=== PATIENT | female | born 1980 | race Caucasian/White ===

== ENCOUNTER 2016-07-28 08:00 | Inpatient (IN) | payer MEDICAID ==
[~2016-07-28] VITALS: Ht 152.4 cm; Wt 64.5 kg
[~2016-07-28 08:00] MED LIST: ACET-2047 PO; NITR-58 PO
[2016-07-28 09:11] VITALS: Ht 152.4 cm; Wt 64.5 kg
[2016-07-28] MEDS: LACTATED RINGER'S 1,000 ML IV SCH ×2 (09:29→17:06)
[2016-07-28] MEDS ORDERED: OXYTOCIN 30 UNITS/LR 500 ML IV SCH ×2 (09:30)
[2016-07-28] MEDS ORDERED: CARBOPROST 250 MCG INJ IM PRN (09:30)
[2016-07-28] MEDS ORDERED: MISOPROSTOL 200 MCG TAB PR PRN (09:30)
[2016-07-28] MEDS ORDERED: OXYTOCIN 30 UNITS/LR 500 ML IV PRN (09:30)
[2016-07-28] MEDS ORDERED: IBUPROFEN 600 MG TAB PO PRN (09:30)
[2016-07-28] MEDS ORDERED: METHYLERGONOVINE 0.2 MG INJ IM PRN (09:30)
[2016-07-28] MEDS ORDERED: LIDOCAINE 1% (MPF) 30 ML INJ INJ PRN (09:30)
[2016-07-28 09:40] VITALS: BP 137/81; PULSE 59; RESP 17
[2016-07-28 09:49] LABS: EOSINOPHILS # 0.1 10^3/ul (0.0-0.5); HEMATOCRIT 41.6 % (37.0-47.0); HEMOGLOBIN 13.9 g/dl (12.0-16.0); LYMPHOCYTES # 1.6 10^3/ul (0.8-2.9); LYMPHOCYTES % 13.2 % (15.0-51.0); MEAN CORPUSCULAR HEMOGLOBIN 28.9 pg (29.0-33.0); MEAN CORPUSCULAR HGB CONC 33.6 g/dl (32.0-37.0); MEAN CORPUSCULAR VOLUME 86.1 fl (82.0-101.0); MEAN PLATELET VOLUME 9.4 fl (7.4-10.4); MONOCYTE # 0.6 10^3/ul (0.3-0.9); MONOCYTES % 4.8 % (0.0-11.0); NEUTROPHIL # 9.5 10^3/ul (1.6-7.5); PLATELET COUNT 221 10^3/UL (140-440); RED BLOOD COUNT 4.83 10^6/ul (4.20-5.40); RED CELL DISTRIBUTION WIDTH 14.8 % (11.5-14.5); UNCORRECTED WBC 11.8 10^3/ul (4.8-10.8); WHITE BLOOD COUNT 11.8 10^3/ul (4.8-10.8)
[2016-07-28 09:52] LABS: CONDITION 1; LH ANALYZER COMMENTS 1
--- NOTE | 2016-07-28 09:56 | RADRPT ---
PROCEDURE: US OB. CLINICAL INDICATION: Placenta previa , pain TECHNIQUE: Transabdominal views of the pelvis are available for review. COMPARISON: 07/10/2016 FINDINGS: There is a single intrauterine gestation in a vertex position. The heart rate is present at 171 bpm. The placenta is posterior. There is no evidence of placental abruption or previa. RPTAT: AA IMPRESSION: Posterior placenta with no evidence of previa. .Lee Florence MD, MD Date Time Electronically viewed and signed by .Lee Florence MD, MD on 07/28/2016 09:56 .S/
[2016-07-28 09:58] LABS: ALBUMIN 3.5 g/dl (3.3-4.9); POTASSIUM 3.9 mmol/L (3.5-5.1)
[2016-07-28 10:00] LABS: BILIRUBIN,INDIRECT 0.2 mg/dl (0-1.1); BILIRUBIN,TOTAL 0.2 mg/dl (0.2-1.3); CREATININE 0.51 mg/dl (0.44-1.00)
[2016-07-28] MEDS ORDERED: AMPICILLIN 2 GM/NS (PMX) 100 ML IV ONE (10:00)
[2016-07-28 10:01] LABS: ALBUMIN/GLOBULIN RATIO 1.02; CALCIUM 9.1 mg/dl (8.4-10.2); INR 0.92; PROTIME 12.4 Sec (12.2-14.2); TOTAL PROTEIN 6.9 g/dl (6.1-8.1)
[2016-07-28] MEDS ORDERED: MISOPROSTOL 25 MCG CAPSULE ONE ×2 (10:33→10:37)
[2016-07-28] MEDS: MISOPROSTOL 25 MCG CAPSULE PO SCH ×4 (10:39→23:14)
[2016-07-28] MEDS ORDERED: LACTATED RINGER'S 1,000 ML IV PRN (13:00)
[2016-07-28] MEDS ORDERED: MISOPROSTOL 25 MCG CAPSULE PO SCH (13:00)
[2016-07-28] MEDS: AMPICILLIN 1 GM/NS (PMX) 50 ML IV SCH ×3 (15:20→22:26)
[2016-07-28 16:01] LABS: ADD UMIC NO; URINE BILIRUBIN (Dip) NEGATIVE (NEGATIVE); URINE BLOOD (Dip) NEGATIVE (NEGATIVE); URINE COLOR LT. YELLOW (YELLOW); URINE GLUCOSE (Dip) NEGATIVE (NEGATIVE); URINE KETONES (Dip) 15 (NEGATIVE); URINE LEUKOCYTE ESTERASE (Dip) NEGATIVE (NEGATIVE); URINE NITRITE (Dip) NEGATIVE (NEGATIVE); URINE TOTAL PROTEIN (Dip) NEGATIVE (NEGATIVE); URINE UROBILINOGEN (Dip) 0.2 E.U./dL (0.1-1.0)
[2016-07-28] MEDS ORDERED: DEXTROSE 5%-LR 1,000 ML IV PRN (21:00)
[2016-07-29] MEDS: AMPICILLIN 1 GM/NS (PMX) 50 ML IV SCH ×4 (02:27→14:39)
[2016-07-29] MEDS: MISOPROSTOL 25 MCG CAPSULE PO SCH ×2 (03:28→07:00)
[2016-07-29] MEDS ORDERED: LEVOTHYROXINE 25 MCG TAB PO SCH (06:00)
[2016-07-29] MEDS: LACTATED RINGER'S 1,000 ML IV SCH ×2 (06:12→22:30)
[2016-07-29] MEDS ORDERED: OXYTOCIN 30 UNITS/LR 500 ML BAG IV ONE (07:00)
[2016-07-29] MEDS ORDERED: OXYTOCIN 30 UNITS/LR 500 ML IV SCH (10:30)
[2016-07-29] MEDS ORDERED: FENTAnyl 2MCG/ML-ROPIV 0.2% 100 ML ONE (11:33)
[2016-07-29] MEDS ORDERED: DIPHENHYDRAMINE 50 MG INJ IV PRN ×2 (12:00→20:30)
[2016-07-29] MEDS ORDERED: FENTAnyl 2MCG/ML-ROPIV 0.2% 100 ML BAG EPI SCH (12:00)
[2016-07-29] MEDS ORDERED: NALOXONE (0.4 MG/ML) INJ IV PRN ×2 (12:00→20:30)
[2016-07-29] MEDS ORDERED: ONDANSETRON 4 MG INJ IV PRN ×2 (12:00→20:30)
[2016-07-29] MEDS ORDERED: LACTATED RINGER'S 1,000 ML IV SCH (18:06)
[2016-07-29] MEDS ORDERED: CEFAZOLIN 2 GM/50 ML (PMX) 50 ML IVPB ONE (18:06)
[2016-07-29] MEDS ORDERED: MISOPROSTOL 200 MCG TAB PR PRN ×2 (18:30→20:30)
[2016-07-29] MEDS ORDERED: OXYTOCIN 30 UNITS/LR 500 ML IV PRN ×2 (18:30→20:30)
[2016-07-29] MEDS ORDERED: CARBOPROST 250 MCG INJ IM PRN ×2 (18:30→20:30)
[2016-07-29] MEDS ORDERED: CEFAZOLIN 2 GM/50 ML (PMX) 50 ML IV SCH (18:30)
[2016-07-29] MEDS ORDERED: METHYLERGONOVINE 0.2 MG INJ IM PRN ×2 (18:30→20:30)
[2016-07-29] MEDS ORDERED: morphine SULFATE/PF (10 MG/10 ML) INJ ONE (19:29)
[2016-07-29] MEDS ORDERED: ONDANSETRON 4 MG INJ ONE (19:29)
[2016-07-29] MEDS ORDERED: PHENYLephrine (100 MCG/ML) 5ML SYG ONE (19:42)
[2016-07-29] MEDS ORDERED: morphine 2 MG INJ IV PRN (20:30)
[2016-07-29] MEDS ORDERED: OXYCODONE/ACETAMINOPHEN (5/325) TAB PO PRN (20:30)
[2016-07-29] MEDS ORDERED: LANOLIN 7 GM TUBE TOP PRN (20:30)
[2016-07-29] MEDS: CEFAZOLIN 2 GM/50 ML (PMX) 50 ML IV SCH (20:30)
[2016-07-29] MEDS ORDERED: NA PHOSPHATE/BIPHOS 133 ML ENEMA PR PRN (20:30)
[2016-07-29] MEDS: KETOROLAC 30 MG INJ IV PRN (20:33)
[2016-07-29] MEDS: SENNA/DOCUSATE NA (8.6MG/50MG) TAB PO SCH (21:00)
[2016-07-29 22:30] VITALS: BP 132/72; PULSE 70; RESP 18
--- NOTE | 2016-07-29 22:45 | OPRPT ---
Intraop Record Datetime Report Generated by CPN: 07/29/2016 22:45 Datetime: 07/29/2016 22:15 Sequential Compression Device: Yes Datetime: 07/29/2016 22:00 Sequential Compression Device: Yes Datetime: 07/29/2016 21:45 Sequential Compression Device: Yes Datetime: 07/29/2016 21:30 Sequential Compression Device: Yes Datetime: 07/29/2016 21:15 Sequential Compression Device: Yes Datetime: 07/29/2016 21:00 Sequential Compression Device: Yes Datetime: 07/29/2016 20:46 Sequential Compression Device: Yes Datetime: 07/29/2016 20:31 Sequential Compression Device: Yes Datetime: 07/29/2016 20:15 Sequential Compression Device: Yes Datetime: 07/29/2016 20:08 Sequential Compression Device: Yes Datetime: 07/29/2016 18:53 OR Number: 3 TIMES/PROCEDURE Arrive OR: 07/29/2016 18:45 Depart OR: 07/29/2016 20:05 Anesthesia Start: 07/29/2016 19:06 Anesthesia End: 07/29/2016 19:07 Surgery Start: 07/29/2016 19:28 Surgery End: 07/29/2016 19:56 Preoperative Dx: INTRAUTERINE TERM Surgical Procedure: Section Postoperative Dx: C/S Decision Time: 07/29/2016 18:01 C/S Decision to Incision (min): 87 Uterine Incision: 07/29/2016 19:28 PERSONNEL Surgeon: Benny Cuevas Yarder Boss Relief Time: 1914 Scrub: Emanuel Kaufman Anesthesia Care Provider: Nitin Mullen Infant Care: See Delivery Summary for Infant Care Providers Others in OR: Иван SNIDER RT, Иван JOHNSTON RN, FOB Anesthesia Type: Epidural ASA Level: II RISK FOR INJURY Mode of Arrival: Bed Procedure Time Out: Correct Patient Identity; Accurate Procedure Consent Form; Agreement on Procedu re to be Done; Correct Patient Position; Relevant Images and Results are Properly Labeled and Displa yed; Addressed Need to Administer Antibiotics or Fluids for Irrigation; Safety Precautions Based on Patient History or Medication Use; Allergies Reviewed Preoperative Information: Preoperative Checklist Reviewed; Allergies Reviewed; NPO Status Verified RISK FOR ANXIETY/KNOW DEFICIT Emotional Status: Calm/Relaxed Interventions: Provided Education Based on Age and Identified Needs; Communicated Patient Concerns to Appropriate Members of the Health Care Team; Explained Sequence of Events and Perioperative Routi ne; Evaluated Response to Instructions RISK FOR PAIN Pain Teaching: Instructed on Pain Scale Pain Scale: 0.0 Pain Location: N/A PREOPERATIVE OUTCOMES Preoperative Outcomes: Verbalizes/Indicates Decreased Anxiety, Ability to [place], Understanding of Pr ocedure and Sequence of Events. Questions Answered; Demonstrates Adequate Pain Management; Verbaliz es Comfort Related to Transfer/Transport RISK FOR INFECTION Skin Pre-Operative Site: Intact Other Site Details: CLOSED Clip: Clip Clip Location: ABDOMEN Prep: Yes Prep By: Blaise CHAN RN Prep Solution: Chlorohexadine Catheter: Strauss Catheter Size: 16 Catheter Inserted By: [facility] Surgical Wound Class: IV-Dirty Dressing Type: Other Other Dressing Types: 4X4, ABD, TELFA Risk for Impaired Skin Integrity Position in OR: Supine Bony Prominences Protection: Arms Tucked/Padded Positioning Devices: Leg [place] Risk for Hypothermia Warming Interventions: Warm [place](s); Warm Irrigation Warming Unit Temp Settin.0 Warming Device Number: ARAMARK #[id number] Warming [place] Applied by: Melchor JOHNSON RN Risk for Injury Safety Straps Applied: Legs Sequential Compression Device: Yes Electrosurgical Unit: Yes Electrosurgical Unit Number: LOT [id number] EXP 2018-05-13 Bipolar Number: ARAMARK# [id number] Ground Pad Location: Right Anterior Thigh Coag Number: 50 Cut Number: 50 Estimated Blood Loss- OR (ml): 500 1st Count Sponge Count: Correct Needle Count: Correct Blade Count: Correct Instrument Count: Correct 2nd Count Sponge Count: Correct Needle Count: Correct Blade Count: Correct Instrument Count: Not Done 3rd Count Sponge Count: Correct Needle Count: Correct Blade Count: Correct Instrument Count: Not Done Final Count Sponge Count 4: Correct Needle Count 4: Correct Blade Count 4: Correct Instrument Count 4: Correct Surgeon Acknowledged Count: Yes Final Count Resolution: Count Correct Intraoperative Data Equipment: Non-Invasive Blood Pressure; Pulse Oximeter; EKG Blood Products Given: N/A Implants/Prosthesis Implants/Prosthesis: N/A Grafts: N/A Irrigation Irrigants: NACL; Sterile H2O Irrigation Amount: 1000ML EACH Specimens Specimens: Yes Specimen Type: Placenta Disposition: PATHOLOGY Cultures Cultures: N/A X-Ray X-Ray Taken: No Postoperative Skin: Warm; Dry Pain Scale: 0 Condition: Other Temperature: 99.0 Operative Outcomes: Patient's Surgery Performed Using Aseptic Technique and in a Manner to Prevent Cross-Contamination; Skin Remains Smooth, Intact, Non-reddened, Non-irritated, Free of Bruising; Cor e Body Temperature Remains in Expected Range Other Operative Outcomes: PT DROWSY Transfer To: L_D Other: RECOVERY ROOM Report Given to: Blaise CHAN RN Datetime: 07/29/2016 04:03 Drug Allergies/Reactions: No Known Allergy (07/29/2016) Datetime: 06/02/2016 14:55 Drug Allergies/Reactions: No Known Allergy (03/01/2015)
--- NOTE | 2016-07-29 22:45 | DELSUM ---
Delivery Summary A-C Datetime Report Generated by CPN: 07/29/2016 22:45 DELIVERY PERSONNEL Research Professor Of Biostatistics: Morris Medleya MATERNAL INFORMATION Delivery Anesthesia: Epidural Medications in Delivery: SEE ANESTHESIA RECORDS Placenta Cultured: No Maternal Complications: Other Other Maternal Complications: A1C - 5.7; IVF LABOR SUMMARY EDC: 07/30/2016 00:00 No. Babies in Womb: 1 Attempted: No Labor Anesthesia: Epidural LABOR INFORMATION Reason for Induction: Maternal Diabetes Reason for Induction- Other: TERM Onset of Labor: 07/29/2016 11:50 Complete Dilatation: 07/29/2016 16:09 Cervical Ripening Agents: Cytotec @ (Annotations: 50[facility] PO (DOSE #6)) Cervical Ripening Agents: Cytotec @ (Annotations: 50 MCG PO GIVEN (DOSE #5)) Cervical Ripening Agents: Cytotec @ (Annotations: 50mcg PO (dose #4)) Cervical Ripening Agents: Cytotec @ 50 Cervical Ripening Agents: Cytotec @ 50 Cervical Ripening Agents: Cytotec @ 50 MCG PO Oxytocin: Augmentation Group B Beta Strep: Positive Group B Beta Strep: Not Done Antibiotics # of Doses: 10 Antibiotics Time of Last Dose: 1908 Steroids Given: None Reason Steroids Not Administered: Not Applicable MEMBRANES Membranes Rupture Method: Spontaneous Rupture of Membranes: 07/29/2016 15:36 Length of Rupture (hr): 3.93 Amniotic Fluid Color: Clear Amniotic Fluid Amount: Moderate Amniotic Fluid Odor: None STAGES OF LABOR Stage 1 hr: 4 Stage 1 min: 19 Stage 2 hr: 3 Stage 2 min: 23 Stage 3 hr: 0 Stage 3 min: 1 Total Time in Labor hr: 7 Total Time in Labor min: 43 CSECTION DELIVERY Primary Indication: Arrest of Descent Secondary Indication: Nonreassuring Stat CSection Urgency: Non Elective CSection Incidence: Primary Labor: Labor Elective: Nonelective CSection Incision: Lower Uterine Transverse BABY A INFORMATION Infant Delivery Date/Time: 07/29/2016 19:32 Method of Delivery: Method of Delivery: Born in Route : No : N/A Forceps: N/A Vacuum Extraction: N/A Shoulder Dystocia : N/A SHOULDER DYSTOCIA BABY A Infant Delivery Date/Time: 07/29/2016 19:32 PRESENTATION/POSITION BABY A Presentation: Cephalic Cephalic Presentation: Vertex Vertex Position: Left Occipital Posterior Breech Presentation: N/A PLACENTA INFORMATION BABY A Placenta Delivery Time : 07/29/2016 19:33 Placenta Method of Delivery: Manual Removal Placenta Status: Delivered SCORES BABY A Heart Rate 1 min: >100 bpm Resp Effort 1 min: Slow, Irregular Reflex Irritability 1 min: Cough/Sneeze/Pulls Away Muscle Tone 1 min: Active Motion Color 1 min: Blue/Pale Resuscitation Effort 1 min: Tactile Stimulation; PPV/NCPAP SCORE 1 MIN: 7 Heart Rate 5 min: >100 bpm Resp Effort 5 min: Good Cry Reflex Irritability 5 min: Cough/Sneeze/Pulls Away Muscle Tone 5 min: Active Motion Color 5 min: Body [place], Extremit Blue Resuscitation Effort 5 min: Tactile Stimulation SCORE 5 MIN: 9 INFORMATION BABY A Gestational Age at Delivery: 39.6 Gestational Status: Full Term- 39- 40.6 Weeks Infant Outcome : Liveborn Infant Condition : Stable Sex: Female Infant Sex: Female IDENTIFICATION/MEDS BABY A ID Band Number: [id number] ID Band Location: Right Leg; Left Arm Sensor Applied: Yes Sensor Number: [id number] Sensor Location : Cord Clamp Vitamin K Given : Not Given Erythromycin Given: Not Given WEIGHT/LENGTH BABY A Birthweight (gm): 2765 Weight (lb): 6 Infant Weight (oz): 2 Length (in): 19.00 Length (cm): 48.26 CORD INFORMATION BABY A No. Cord Vessels: 3 Nuchal Cord : N/A Cord Blood Taken: Yes Banking/Donate Info: N/A Infant Suction: Mouth; Nose ASSESSMENT BABY A Complications: Multiple Variable Decels Physical Findings at Delivery: Within Normal Limits Physical Findings- Other: STOOL X1 Infant Respirations: Appears Normal Vp Corporate Development/ALS Called : No Infant Care By: JHOAN SNIDER RT _ Иван JOHNSTON RN Transferred To: Remains with Mother
[2016-07-29 23:00] VITALS: BP 128/68; PULSE 70; RESP 18
[2016-07-30] VITALS (7 sets, daily range): BP systolic 115–121; BP diastolic 54–70; PULSE 56–139; RESP 18–19
[2016-07-30] MEDS: LACTATED RINGER'S 1,000 ML IV SCH ×3 (00:32→17:02)
[2016-07-30] MEDS: CEFAZOLIN 2 GM/50 ML (PMX) 50 ML IV SCH ×3 (04:07→20:21)
--- NOTE | 2016-07-30 06:10 | PREOPHP ---
DATE OF ADMISSION: 07/28/2016 HISTORY OF PRESENT ILLNESS: Ms. Evette Smyth is a 36-year-old, 4, para 2, EDC 08/02/2016, intrauterine at 39-weeks' gestational age, admitted yesterday for induction secondary to GDMA1. She was started on Cytotec for cervical ripening, followed by Pitocin; however, there was arrest in descent at +1 to +2 station. The patient initially offered a delivery; however, declined, but after reexamining and explaining to her the risks, benefits and alternatives, the patient now desires a delivery. The patient has a significant history of IVF in this complicated with GDMA1. CARE: Benny Cuevas MD MEDICAL HISTORY: History of hypothyroid; however, is on no meds. PAST SURGICAL HISTORY: None. OBSTETRICAL HISTORY: x2 vaginal deliveries, x1 missed AB. GYNECOLOGIC HISTORY: 10, regular, 3 to 4 days. Denies any sexually transmitted diseases. Sexually active with 1 partner. SOCIAL HISTORY: Denies any smoking, drugs or alcohol. FAMILY HISTORY: None. PHYSICAL EXAMINATION HEENT: Within normal. LUNGS: CTA bilateral. CARDIOVASCULAR: S1, S2, regular rhythm. ABDOMEN: Gravid, nontender. Negative CVA bilateral. EXTREMITIES: Negative edema. No calf tenderness. PELVIC: Vaginal exam fully dilated, 100% effaced, +1 station. ASSESSMENT: A 36-year-old 4, para 2, intrauterine at 39-weeks ' gestational age, with IVF at advanced maternal age. Arrest in descent. PLAN: Consent for a primary . Risks, benefits and alternatives explained. All questions were answered. Dictated By: BENNY KONG/BRENNON Conf#: [id number] DID#: [id number] MTDToby
[2016-07-30 08:05] LABS: BASOPHILS % 0.1 % (0.0-2.0); EOSINOPHILS # 0.1 10^3/ul (0.0-0.5); EOSINOPHILS % 0.4 % (0.0-7.0); HEMATOCRIT 32.3 % (37.0-47.0); HEMOGLOBIN 10.8 g/dl (12.0-16.0); LYMPHOCYTES # 1.4 10^3/ul (0.8-2.9); LYMPHOCYTES % 9.6 % (15.0-51.0); MEAN CORPUSCULAR HEMOGLOBIN 29.1 pg (29.0-33.0); MEAN CORPUSCULAR HGB CONC 33.4 g/dl (32.0-37.0); MEAN CORPUSCULAR VOLUME 86.9 fl (82.0-101.0); MEAN PLATELET VOLUME 9.3 fl (7.4-10.4); MONOCYTE # 0.8 10^3/ul (0.3-0.9); MONOCYTES % 5.9 % (0.0-11.0); NEUTROPHIL # 12.1 10^3/ul (1.6-7.5); PLATELET COUNT 178 10^3/UL (140-440); RED BLOOD COUNT 3.71 10^6/ul (4.20-5.40); RED CELL DISTRIBUTION WIDTH 15.1 % (11.5-14.5); UNCORRECTED WBC 14.4 10^3/ul (4.8-10.8); WHITE BLOOD COUNT 14.4 10^3/ul (4.8-10.8)
[2016-07-30 08:09] LABS: CONDITION 1; LH ANALYZER COMMENTS 1
[2016-07-30] MEDS: SENNA/DOCUSATE NA (8.6MG/50MG) TAB PO SCH ×2 (10:17→20:22)
[2016-07-30] MEDS: KETOROLAC 30 MG INJ IV PRN ×2 (12:14→17:27)
--- NOTE | 2016-07-30 20:12 | QN ---
Documentation Comment attending not pod 1 patient seen and evaluated no complaints vs stable afebrile ab dressing clean no distention nt, uterine fundus firm below umbillicus extremity no edema no calf tenderness h/h 10.8/32.3 a/ s/p cd pod 1 stable afebrile p/ iron supplement ANICETO BEDOYA MD Jul 30, 2016 20:12
[2016-07-30] MEDS: OXYCODONE/ACETAMINOPHEN (5/325) TAB PO PRN (20:22)
[2016-07-30] MEDS: FERROUS SULFATE (EC) 325 MG TAB PO SCH (20:22)
[2016-07-31] MEDS: IBUPROFEN 600 MG TAB PO SCH ×5 (01:25→23:45)
[2016-07-31 04:00] VITALS: BP 104/50; PULSE 59; RESP 18
--- NOTE | 2016-07-31 06:18 | OPR ---
DATE OF OPERATION: 07/29/2016 PREOPERATIVE DIAGNOSIS: A 36-year-old 4, para 2, intrauterine at 39 weeks gestational age, advanced maternal age, in vitro fertilization, GDMA1, arrest in descent. POSTOPERATIVE DIAGNOSIS: A 36-year-old 4, para 2, intrauterine at 39 weeks gestational age, advanced maternal age, in vitro fertilization, GDMA1, arrest in descent. PROCEDURE: Primary low transverse delivery. SURGEON: Benny Cuevas MD. HOT AIR FURNACE INSTALLER AND REPAIRER: Dr. Keri Diaz FINDINGS: A viable female, Apgars 7 and 9, respectively at 1 and 5 minutes, weight 6 pounds 2 ounces. ESTIMATED BLOOD LOSS: 500 mL. SPECIMEN: None. COMPLICATIONS OF PROCEDURE: None. TYPE OF ANESTHESIA: Epidural. DESCRIPTION OF PROCEDURE: After explaining the risks, benefits and alternatives , the patient and consent signed in chart, the patient was taken to the operating room where epidural anesthesia was found to be adequate. She was then prepared and draped in normal sterile fashion in dorsal position with a leftward tilt. A Pfannenstiel skin incision was then made with a scalpel and carried to the underlying layer of the fascia. The fascia was incised in the midline and incision was extended laterally with Sumner scissors. The superior aspect of the fascial incision was grasped with Arnoldo clamps, elevated and the underlying rectus muscles dissected off bluntly. Attention was then turned to the inferior aspect of the incision, which in similar fashion was grasped, tented up with Arnoldo clamps and the rectus muscles dissected off bluntly. The rectus muscles were in midline, peritoneum identified, tented up and entered sharply with Metzenbaum scissors. The peritoneal incision was extended superiorly and inferiorly with good visualization of the bladder. The bladder blade was then inserted and the vesicouterine peritoneum identified, grasped with pickups and entered sharply with Metzenbaum scissors. This incision was extended laterally and a bladder flap created digitally. The bladder blade was then reinserted and the lower segment incised in a transverse fashion with a scalpel. The uterine incision was extended laterally. The bladder blade was removed and the infant's head delivered atraumatically in OP presentation. The nose and mouth were suctioned and cord clamped and cut. The infant was handed off to awaiting veneer jointer operator. The placenta was then removed. The uterus exteriorized and cleared of all clots and debris. The uterine incision was repaired with 1-0 chromic in a running locked fashion. A second layer of the same suture was used for imbrication obtaining excellent hemostasis. The uterus was returned to the abdomen. The gutters were cleared of all clots. The peritoneum and rectus abdominis muscles were reapproximated with 3-0 Vicryl in an interrupted fashion. The fascia was reapproximated with 0 Vicryl in a running fashion. The subcutaneous tissue was reapproximated with 2-0 plain gut in a running fashion. The skin was closed with abby. The patient tolerated the procedure well. Sponge, lap and needle counts were correct x2. The patient was taken to the recovery room in stable condition. Dictated By: BENNY KONG/BRENNON Conf#: [id number] DID#: [id number] MTDD
[2016-07-31] MEDS: LACTATED RINGER'S 1,000 ML IV SCH ×3 (07:00→21:31)
[2016-07-31 08:00] VITALS: BP 119/59; PULSE 54; RESP 18
[2016-07-31] MEDS: FERROUS SULFATE (EC) 325 MG TAB PO SCH ×2 (08:46→21:05)
[2016-07-31] MEDS: SENNA/DOCUSATE NA (8.6MG/50MG) TAB PO SCH ×2 (08:46→21:06)
[2016-07-31] MEDS: OXYCODONE/ACETAMINOPHEN (5/325) TAB PO PRN (10:44)
[2016-07-31 16:00] VITALS: BP 122/60; PULSE 59; RESP 18
[2016-07-31 19:45] VITALS: BP 135/63; PULSE 61; RESP 17
--- NOTE | 2016-07-31 20:51 | PD.PPDC ---
HEALTH AND SAFETY CONSULTANT Discharge Instruction Condition Patient Condition: Good Diet Diet: Resume Regular Diet Activity/Restrictions Restrictions: No Lifting No Driving No Sexual Activity Nothing in the Vagina No [place] No Tampons, douche Follow-up Follow-up with Physician: 3, Day/Days Provider Information: f/u this tues to remove abby Return to clinic for CONSUMER RELATIONS COMPLAINT CLERK Instructions: Fever greater than 101 Chills Worsening abdominal pain Excessive Vaginal Bleeding More than 2 pads per hour Unable to tolerate diet OB Instructions: Breast Tenderness Depression Blurried Vision Headache Surgical Instructions: Incisional Drainage Incisional Redness ANICETO BEDOYA MD Jul 31, 2016 20:51
[2016-08-01 04:00] VITALS: BP 108/52; PULSE 59; RESP 17
[2016-08-01] MEDS: IBUPROFEN 600 MG TAB PO SCH ×2 (05:35→11:37)
[2016-08-01] MEDS ORDERED: LEVOTHYROXINE 25 MCG TAB PO SCH (06:00)
[2016-08-01] MEDS: FERROUS SULFATE (EC) 325 MG TAB PO SCH (08:54)
[2016-08-01 08:55] VITALS: BP 136/65; PULSE 56; RESP 18
[2016-08-01] MEDS: SENNA/DOCUSATE NA (8.6MG/50MG) TAB PO SCH (08:55)
== END 2016-08-01 16:33 | disposition home or self-care (01) | DRG 766 ==
LOC: L-D 08:10 → PP1 07-29 22:34
PROVIDERS: ADMIT Obstetrics & Gynecology; ATTEND Obstetrics & Gynecology
PROC: 10D00Z1 Extraction of Products of Conception, Low, Open Approach (ICD-10-PCS; principal; 2016-07-29 19:30)
DX: O62.1 Secondary uterine inertia (principal); O16.4 Unspecified maternal hypertension, complicating childbirth; Z3A.39 39 weeks gestation of pregnancy; Z37.0 Single live birth
CPT/HCPCS: 62319; 76815; 80053; 81003; 82962; 84560; 85025; 85384; 85610; 85730; 86592; 86850; 86900; 86901; 88307; 94760; 99464; J0290; J0690; J1885; J2274; J2370; J2405; J2590; J3010; J7120